=== PATIENT | male | born 1965 | race Caucasian/White ===

== ENCOUNTER 2020-07-25 06:48 | Outpatient (REF) | payer OTHER, SELFPAY ==
[2020-07-25 07:10] LABS: COVID-19 Test Negative (Negative)
== END 2020-07-25 06:49 | disposition home or self-care (01) ==
LOC: HO.LAB 06:48
PROVIDERS: Visit Provider Internal Medicine
DX: Z20.828 Contact with and (suspected) exposure to other viral communicable diseases (principal)
CPT/HCPCS: 87635

== ENCOUNTER 2020-07-28 06:39 | Outpatient (REF) | payer OTHER, SELFPAY ==
[2020-07-28 07:21] LABS: COVID-19 Test Negative (Negative)
== END 2020-07-28 06:40 | disposition home or self-care (01) ==
LOC: HO.LAB 06:39
PROVIDERS: Visit Provider Internal Medicine
DX: Z20.828 Contact with and (suspected) exposure to other viral communicable diseases (principal)
CPT/HCPCS: 87635

== ENCOUNTER 2020-08-05 06:36 | Outpatient (REF) | payer OTHER, SELFPAY ==
[2020-08-05 07:03] LABS: COVID-19 Test Negative (Negative)
== END 2020-08-05 06:37 | disposition home or self-care (01) ==
LOC: HO.LAB 06:36
PROVIDERS: Visit Provider Internal Medicine
DX: Z20.828 Contact with and (suspected) exposure to other viral communicable diseases (principal)
CPT/HCPCS: 87635